=== PATIENT | female | born 1955 | race African-American/Black ===

== ENCOUNTER 2025-06-14 10:36 | Emergency (ER) | payer MEDICARE, OTHER ==
[~2025-06-14] VITALS: Ht 167.6 cm; Wt 124.5 kg
[2025-06-14 10:48] VITALS: TEMP 97.9
[2025-06-14] MEDS ORDERED: ARIP10TA38 PO (10:56)
[2025-06-14] MEDS ORDERED: OMEP-148 PO (10:56)
[2025-06-14] MEDS ORDERED: DULO60CA73 PO ×2 (10:56)
[2025-06-14] MEDS ORDERED: EMPA10TA3 PO (10:56)
[2025-06-14] MEDS ORDERED: ALBU18HF12 IH (10:56)
[2025-06-14] MEDS ORDERED: BUPR-344 PO ×2 (10:56)
[2025-06-14] MEDS ORDERED: ATOR20TA PO (10:56)
[2025-06-14] MEDS ORDERED: TELM1TAB6 PO (10:56)
[2025-06-14] MEDS ORDERED: AMLO-257 PO (10:56)
[2025-06-14] MEDS ORDERED: METF-1211 PO (10:56)
[2025-06-14] MEDS ORDERED: LEVO50 PO (10:56)
[2025-06-14] MEDS ORDERED: ACYC-317 PO (10:57)
[2025-06-14] MEDS ORDERED: GABA-1216 PO (10:57)
[2025-06-14 11:20] LABS: GLUCOMETER DEV NAME(LOC) ER.7; GLUCOSE,POINT OF CARE 142 MG/DL (70-110)
[2025-06-14] MEDS: KETOROLAC TROMETHAMINE 30 MG/ML VIAL IM ONE (12:50)
[2025-06-14 13:39] VITALS: BP 132/84; PULSE 86; RESP 18; O2SAT 98
== END 2025-06-14 13:46 | disposition home or self-care (01) ==
LOC: EMS 10:36
DX: S83.91XA Sprain of unspecified site of right knee, initial encounter (principal); E11.9 Type 2 diabetes mellitus without complications; E78.00 Pure hypercholesterolemia, unspecified; F32.A Depression, unspecified; I10 Essential (primary) hypertension; M19.90 Unspecified osteoarthritis, unspecified site; K21.9 Gastro-esophageal reflux disease without esophagitis; E03.8 Other specified hypothyroidism; Z88.5 Allergy status to narcotic agent; Z90.49 Acquired absence of other specified parts of digestive tract; Z90.710 Acquired absence of both cervix and uterus; Z79.624 Long term (current) use of inhibitors of nucleotide synthesis; Z88.2 Allergy status to sulfonamides; Z79.899 Other long term (current) drug therapy; W01.0XXA Fall on same level from slipping, tripping and stumbling without subsequent striking against object, initial encounter; Y93.89 Activity, other specified; Y92.89 Other specified places as the place of occurrence of the external cause; Y99.8 Other external cause status
CPT/HCPCS: 99283; 29505; 82962; 73562; 96372; J1885